=== PATIENT | female | born 1995 | race Caucasian/White ===

== ENCOUNTER 2016-10-01 20:40 | Emergency (ER) | payer MEDICAID | END 2016-10-02 00:55 | disposition home or self-care (01) | LOC: ER 20:40 | DX: S30.0XXA Contusion of lower back and pelvis, initial encounter (principal); W18.39XA Other fall on same level, initial encounter; Y93.89 Activity, other specified; Y92.69 Other specified industrial and construction area as the place of occurrence of the external cause; Z33.1 Pregnant state, incidental; F17.210 Nicotine dependence, cigarettes, uncomplicated | CPT/HCPCS: 36415; 85460 ==